=== PATIENT | female | born 2000 | race American Indian/Alaskan Native ===

== ENCOUNTER 2019-12-02 15:01 | Emergency (ER) | payer SELFPAY | END 2019-12-02 15:30 | disposition left against medical advice (07) | LOC: ED 15:01 | DX: R51 Headache (principal); Z53.21 Procedure and treatment not carried out due to patient leaving prior to being seen by health care provider ==

== ENCOUNTER 2020-04-02 15:11 | Emergency (ER) | payer SELFPAY ==
[2020-04-02 15:39] VITALS: BP 102/63
--- NOTE | 2020-04-02 18:50 | Emergency Department Report ---
ED ENT HPI - General Chief complaint: Dental/Oral Stated complaint: LT SIDE FACIAL SWELLING Time Seen by Provider: 04/02/20 18:44 Source: patient Mode of arrival: Ambulatory Limitations: No Limitations - History of Present Illness Initial comments: The patient was evaluated in the emergency department for symptoms described in the history of present illness. He/she was evaluated in the context of the global COVID-19 pandemic, which necessitated consideration that the patient might be at risk for infection with the virus that causes COVID-19. Insti tutional protocols and algorithms that pertain to the evaluation of patients at risk for COVID-19 are in a state of rapid change based on information released by regulatory bodies including the CDC and federal and state organizations. These policies and algorithms were followed during the patient's care in the emergency department. Please note that these policies, procedures and recommendations changed on a rapid basis. 19-year-old -[place] female presents to the emergency room for right side jaw swelling and tooth pain x2 months. Patient denies any fever chills no nausea no vomiting. Patient states that she she should have seen a dentist but comes to the emergency room. MD complaint: tooth pain Onset/Timin -: month(s) Severity: severe Severity scale (0 -10): 9 Quality: sharp Consistency: intermittent Improves with: none Worsens with: eating Context- Dental: history of dental caries Associated Symptoms: gum swelling, toothache. denies: fever, cough, pain with swallowing, sore throat, tinnitus, hearing loss, discharge from ear - Related Data Previous Rx's Medication Instructions Recorded Last Taken Type Clindamycin [Clindamycin CAP] 300 mg PO Q8H #30 cap 04/02/20 Unknown Rx Ibuprofen [Motrin 400 MG tab] 400 mg PO Q8H PRN #30 tablet 04/02/20 Unknown Rx Allergies Allergy/AdvReac Type Severity Reaction Status Date / Time penicillin G Allergy Itching Verified 04/02/20 15:33 ED Dental HPI - General Chief complaint: Dental/Oral Stated complaint: LT SIDE FACIAL SWELLING Time Seen by Provider: 04/02/20 18:44 Source: patient Mode of arrival: Ambulatory Limitations: No Limitations - Related Data Previous Rx's Medication Instructions Recorded Last Taken Type Clindamycin [Clindamycin CAP] 300 mg PO Q8H #30 cap 04/02/20 Unknown Rx Ibuprofen [Motrin 400 MG tab] 400 mg PO Q8H PRN #30 tablet 04/02/20 Unknown Rx Allergies Allergy/AdvReac Type Severity Reaction Status Date / Time penicillin G Allergy Itching Verified 04/02/20 15:33 ED Review of Systems ROS: Stated complaint: LT SIDE FACIAL SWELLING Other details as noted in HPI Comment: All other systems reviewed and negative ED Past Medical Hx - Past Medical History Previous Medical History?: No - Surgical History Past Surgical History?: No - Social History Smoking Status: Never Smoker Substance Use Type: None - Medications Home Medications: Home Medications Medication Instructions Recorded Confirmed Last Taken Type Clindamycin [Clindamycin CAP] 300 mg PO Q8H #30 cap 04/02/20 Unknown Rx Ibuprofen [Motrin 400 MG tab] 400 mg PO Q8H PRN #30 tablet 04/02/20 Unknown Rx ED Physical Exam - General Limitations: No Limitations General appearance: alert, in no apparent distress - Head Head exam: Present: atraumatic, normocephalic, other (Right Side jaw swelling) - Neck Neck exam: Present: normal inspection, full ROM - Respiratory Respiratory exam: Absent: accessory muscle use - Back Exam Back exam: Present: normal inspection - Neurological Exam Neurological exam: Present: alert, oriented X3, normal gait - Psychiatric Psychiatric exam: Present: normal affect, normal mood - Skin Skin exam: Present: warm, dry, intact, normal color. Absent: rash ED Course Vital Signs 04/02/20 15:38 Temperature 98.1 F Pulse Rate 80 Respiratory 16 Rate Blood Pressure 102/63 [Right] O2 Sat by Pulse 100 Oximetry ED Medical Decision Making - Medical Decision Making 19-year-old -[place] female presents to the emergency room for right side jaw swelling and tooth pain x2 months. Patient denies any fever chills no nausea no vomiting. Patient states that she she should have seen a dentist but comes to the emergency room. Patient will be placed on clindamycin and ibuprofen and to follow-up with a dentist. Critical care attestation.: If time is entered above; I have spent that time in minutes in the direct care of this critically ill patient, excluding procedure time. ED Disposition Clinical Impression: Dental abscess Disposition: DC- TO HOME OR SELFCARE Is pt being admited?: No Does the pt Need Aspirin: No Condition: Stable Instructions: Dental Abscess, [id number] Additional Instructions: Complete antibiotics as prescribed. Take pain medication as needed. Prescriptions: Clindamycin [Clindamycin CAP] 300 mg PO Q8H #30 cap Ibuprofen [Motrin 400 MG tab] 400 mg PO Q8H PRN #30 tablet PRN Reason: Pain , Severe (7-10) Referrals: PRIMARY CARE,MD [Primary Care Provider] - 3-5 Days [facility] [Outside] - 3-5 Days [facility] [Outside] - 3-5 Days
== END 2020-04-02 19:14 | disposition home or self-care (01) ==
LOC: ED 15:11
DX: K04.7 Periapical abscess without sinus (principal); Z79.1 Long term (current) use of non-steroidal anti-inflammatories (NSAID); Z79.899 Other long term (current) drug therapy; Z88.0 Allergy status to penicillin
CPT/HCPCS: 99282